=== PATIENT | female | born 1960 | race Caucasian/White ===

== ENCOUNTER 2017-12-11 07:45 | Outpatient (CLI) | payer OTHER, MEDICARE ==
[2017-12-11] VITALS (19 sets, daily range): BP systolic 94–137; BP diastolic 65–85
[~2017-12-11 07:45] MED LIST: ALPR-624 PO; CARV6.253 PO; ESCI20TA PO; FURO40TA4 PO; LEVO100T PO; LISI-604 PO; POTA10TA15 PO; QUET300T2 PO
== END 2017-12-11 23:59 | disposition home or self-care (01) ==
LOC: CARD DIAG 07:45
PROVIDERS: ATTEND Physician Assistant
DX: R55 Syncope and collapse (principal); R56.9 Unspecified convulsions; I10 Essential (primary) hypertension; Z87.891 Personal history of nicotine dependence
CPT/HCPCS: 93660

== ENCOUNTER 2021-05-26 15:58 | Emergency (ER) | payer OTHER, MEDICARE ==
[~2021-05-26] VITALS: Ht 167.6 cm; Wt 72.7 kg
[~2021-05-26 15:58] MED LIST changes: -ESCI20TA PO; +ESCI20TA25 PO; -LISI-604 PO; +LISI5TAB22 PO
[2021-05-26 17:11] LABS: APTT 29 SECONDS (22-32)
[2021-05-26 17:14] LABS: ALANINE AMINOTRANSFERASE 12 U/L (12-78); ALBUMIN 2.8 G/DL (3.4-5.0); ALBUMIN/GLOBULIN RATIO 0.6 (1.1-1.5); ALKALINE PHOSPHATASE 99 IU/L (46-116); ANION GAP 9 (8-16); ASPARTATE AMINO TRANSFERASE 14 U/L (10-37); BASOPHILS # (AUTO) 0.3 X10'3 (0-0.2); BILIRUBIN,TOTAL 0.5 MG/DL (0.1-1.0); BLOOD UREA NITROGEN 6 MG/DL (7-18); BUN/CREATININE RATIO 6.2 (6.6-38.0); CALCIUM 8.7 MG/DL (8.5-10.1); CHLORIDE 95 MMOL/L (99-107); CREATININE 0.97 MG/DL (0.40-0.90); EOSINOPHILS # (AUTO) 0.5 X10'3 (0-0.9); GLUCOSE 118 MG/DL (70-104); HEMOGLOBIN 12.3 g/dl (12.0-16.0); MEAN CORPUSCULAR HEMOGLOBIN 28.8 PG (27.0-31.0); SODIUM 133 MMOL/L (135-145); TOTAL CARBON DIOXIDE 29.2 MMOL/L (24-32); TOTAL PROTEIN 7.2 G/DL (6.4-8.2); eGFR 58 ML/MIN
[2021-05-26 17:16] LABS: BASOPHILS % (AUTO) 1.9 % (0-1); EOSINOPHILS % (AUTO) 3.5 % (0-6); HEMATOCRIT 37.7 % (35.0-45.0); LYMPHOCYTES # (AUTO) 2.1 X10'3 (1.1-4.8); LYMPHOCYTES % (AUTO) 15.8 % (21-51); MEAN CORPUSCULAR HGB CONC 32.6 g/dL (33.0-36.5); MEAN CORPUSCULAR VOLUME 88.5 FL (78-98); MEAN PLATELET VOLUME 7.9 FL (7.4-10.4); MONOCYTES % (AUTO) 7.8 % (2-12); NEUTROPHILS # (AUTO) 9.5 X10'3 (1.8-7.7); PLATELET COUNT 660 X10'3 (140-440); RED BLOOD COUNT 4.26 X10'6 (4.20-5.60); RED CELL DISTRIBUTION WIDTH 15.9 % (11.5-14.5); WHITE BLOOD COUNT 13.4 X10'3 (4.5-11.0)
[2021-05-26 17:21] LABS: POTASSIUM 2.5 MMOL/L (3.5-5.1)
[2021-05-26] MEDS ORDERED: normal saline 1000ML IV soln IVB ONE ×2 (17:25→19:05)
[2021-05-26] MEDS ORDERED: potassium Cl 20 mEq/100mL bag IV ONE (17:25)
[2021-05-26] MEDS ORDERED: ondansetron/PF 4mg/2ml inj IV ONE ×2 (17:45→20:35)
[2021-05-26] MEDS ORDERED: morphine 4 MG/ML inj SYRINge IV ONE (17:45)
[2021-05-26] MEDS: potassium CL 10mEq/100ml bag 100 ML IV SCH ×2 (17:47→19:21)
[2021-05-26 19:42] LABS: ALBUMIN 2.4 G/DL (3.4-5.0); ANION GAP 13 (8-16); BLOOD UREA NITROGEN 6 MG/DL (7-18); BUN/CREATININE RATIO 7.2 (6.6-38.0); CHLORIDE 97 MMOL/L (99-107); CREATININE 0.83 MG/DL (0.40-0.90); GLUCOSE 103 MG/DL (70-104); SODIUM 134 MMOL/L (135-145); TOTAL CARBON DIOXIDE 23.7 MMOL/L (24-32); eGFR 69 ML/MIN
[2021-05-26 19:46] LABS: POTASSIUM 2.7 MMOL/L (3.5-5.1)
[2021-05-26] MEDS ORDERED: potassium Cl 20 mEq SR tablet PO ONE (19:55)
[2021-05-26 20:57] LABS: PLATELET ESTIMATE INCREASED; TOTAL CELLS COUNTED 100
[2021-05-26 20:58] VITALS: BP 135/81
--- NOTE | 2021-05-26 21:01 | NUR ---
PT HAS BEEN ABLE TO DRINK WATER AND CRACKERS ALONG WITH ORAL POTASSIUM WITH OUT ANY VOMITING DID HAVE SOME NAUSEA BUT GIVEN ZOFAN WITH SOME RELIF
[2021-05-26] MEDS ORDERED: ONDA8TAB13 PO (21:15)
== END 2021-05-26 21:36 | disposition home or self-care (01) ==
LOC: ER 15:59
DX: E87.6 Hypokalemia (principal); R10.13 Epigastric pain; R11.2 Nausea with vomiting, unspecified; R19.7 Diarrhea, unspecified; R53.1 Weakness; Z88.6 Allergy status to analgesic agent; Z88.8 Allergy status to other drugs, medicaments and biological substances; Z79.899 Other long term (current) drug therapy
CPT/HCPCS: 36415; 74176; 80048; 80053; 83605; 84145; 85007; 85025; 85610; 85730; 86885; 86900; 86901; 93005; 96365; 96366; 96375; 96376; 99285; J2270; J2405; J3480; J7030

== ENCOUNTER 2022-01-15 19:17 | Emergency (ER) | payer OTHER, MEDICARE ==
[~2022-01-15] VITALS: Ht 167.6 cm; Wt 72.7 kg
[~2022-01-15 19:17] MED LIST changes: -ESCI20TA25 PO; +ESCI20TA36 PO; +ONDA8TAB13 PO
[2022-01-15 19:47] LABS: BASOPHILS # (AUTO) 0.1 X10'3 (0-0.2); BASOPHILS % (AUTO) 0.8 % (0-1); EOSINOPHILS # (AUTO) 0.1 X10'3 (0-0.9); EOSINOPHILS % (AUTO) 1.6 % (0-6); HEMATOCRIT 43.5 % (35.0-45.0); HEMOGLOBIN 14.7 g/dl (12.0-16.0); LYMPHOCYTES # (AUTO) 3.1 X10'3 (1.1-4.8); LYMPHOCYTES % (AUTO) 38.5 % (21-51); MEAN CORPUSCULAR HEMOGLOBIN 30.5 PG (27.0-31.0); MEAN CORPUSCULAR HGB CONC 33.7 g/dL (33.0-36.5); MEAN CORPUSCULAR VOLUME 90.4 FL (78-98); MEAN PLATELET VOLUME 8.4 FL (7.4-10.4); MONOCYTES # (AUTO) 0.6 X10'3 (0-0.9); MONOCYTES % (AUTO) 7.7 % (2-12); NEUTROPHILS # (AUTO) 4.2 X10'3 (1.8-7.7); NEUTROPHILS % (AUTO) 51.4 % (42-75); PLATELET COUNT 283 X10'3 (140-440); RED BLOOD COUNT 4.81 X10'6 (4.20-5.60); RED CELL DISTRIBUTION WIDTH 14.5 % (11.5-14.5); WHITE BLOOD COUNT 8.1 X10'3 (4.5-11.0)
[2022-01-15 20:12] LABS: ALANINE AMINOTRANSFERASE 27 U/L (12-78); ALBUMIN/GLOBULIN RATIO 1.1 (1.1-1.5); ALKALINE PHOSPHATASE 95 IU/L (46-116); ANION GAP 9 (8-16); ASPARTATE AMINO TRANSFERASE 25 U/L (10-37); BILIRUBIN,TOTAL 0.4 MG/DL (0.1-1.0); BLOOD UREA NITROGEN 13 MG/DL (7-18); BUN/CREATININE RATIO 12.5 (6.6-38.0); CALCIUM 9.3 MG/DL (8.5-10.1); CHLORIDE 105 MMOL/L (99-107); CREATININE 1.04 MG/DL (0.40-0.90); GLUCOSE 108 MG/DL (70-104); POTASSIUM 3.1 MMOL/L (3.5-5.1); SODIUM 143 MMOL/L (135-145); TOTAL CARBON DIOXIDE 28.6 MMOL/L (24-32); TOTAL PROTEIN 7.8 G/DL (6.4-8.2); eGFR 54 ML/MIN
[2022-01-15] MEDS ORDERED: potassium Cl 20 mEq SR tablet PO STA (20:56)
[2022-01-15] MEDS ORDERED: furosemide 20 MG/2 ML vial IV ONE (21:00)
[2022-01-15] MEDS ORDERED: furosemide 10 MG/1 ML 10ml inj IV ONE (21:00)
[2022-01-15 21:30] VITALS: BP 138/83
== END 2022-01-15 21:56 | disposition home or self-care (01) ==
LOC: ER 19:18
DX: R42 Dizziness and giddiness (principal); I50.9 Heart failure, unspecified; R68.84 Jaw pain; J44.9 Chronic obstructive pulmonary disease, unspecified; Z88.6 Allergy status to analgesic agent; Z88.8 Allergy status to other drugs, medicaments and biological substances
CPT/HCPCS: 36415; 71045; 80053; 83880; 84484; 85025; 93005; 96374; 99285; J1940

== ENCOUNTER 2023-05-22 12:40 | Day surgery (SDC) | payer OTHER, MEDICARE ==
[~2023-05-22] VITALS: Ht 167.6 cm; Wt 64.4 kg
[2023-05-22] VITALS (11 sets, daily range): BP systolic 135–164; BP diastolic 64–98; PULSE 77–92; RESP 14–18; TEMP 97.5; O2SAT 92–98
[2023-05-22] MEDS ORDERED: normal saline 1000ml 1,000 ML IV SCH (13:20)
[2023-05-22] MEDS ORDERED: MIDAZolam 1mg/ml 10ml vial IV ONE (13:25)
[2023-05-22] MEDS ORDERED: fentaNYL/PF 50MCG/1 ML 2ML syringe IV ONE (13:25)
[2023-05-22] MEDS ORDERED: ABAL1.56 (13:39)
[2023-05-22] MEDS ORDERED: POTA-366 PO (13:39)
[2023-05-22] MEDS ORDERED: PANT40TA54 PO (13:39)
[2023-05-22] MEDS ORDERED: FURO40TA4 PO (13:39)
[2023-05-22] MEDS ORDERED: ACET-890 PO (13:39)
[2023-05-22] MEDS ORDERED: LEVO200T8 PO (13:39)
[2023-05-22] MEDS ORDERED: EMPA10TA PO (13:39)
== END 2023-05-22 16:20 | disposition home or self-care (01) ==
LOC: SSTAY O 12:40
PROVIDERS: ATTEND Student in an Organized Health Care Education/Training Program
DX: I34.0 Nonrheumatic mitral (valve) insufficiency (principal); I11.0 Hypertensive heart disease with heart failure; I50.9 Heart failure, unspecified; E78.00 Pure hypercholesterolemia, unspecified; I42.0 Dilated cardiomyopathy; G47.30 Sleep apnea, unspecified
CPT/HCPCS: 93308; 93312; 93325; J2250; J3010; J7030; A4620